=== PATIENT | female | born 1985 | race Caucasian/White ===

== ENCOUNTER 2021-01-26 23:49 | Emergency (ER) | payer OTHER ==
[2021-01-27 01:34] LABS: HEMOGLOBIN 13.5 gm/dl (12.3-15.3); RED BLOOD COUNT 4.99 M/UL (4.00-5.10); WHITE BLOOD COUNT 8.7 K/UL (4.5-11.0)
[2021-01-27 01:57] LABS: BUN/CREATININE RATIO 15 (0-10)
[2021-01-27] MEDS ORDERED: ZOFRAN4 MG PO (03:35)
[2021-01-28 08:14] LABS: HBSAG SCREEN Negative (Negative); HEP A AB, IGM Negative (Negative); HEP B CORE AB, IGM Negative (Negative); HEP C VIRUS AB 0.1 (0.0-0.9)
== END 2021-01-27 04:05 | disposition home or self-care (01) ==
LOC: ER1 23:49
PROVIDERS: Physician Assistant
DX: R55 Syncope and collapse (principal); R11.10 Vomiting, unspecified; Z20.822 Contact with and (suspected) exposure to COVID-19; I10 Essential (primary) hypertension; Z90.89 Acquired absence of other organs; Z88.0 Allergy status to penicillin
CPT/HCPCS: 70450; 71045; 80053; 80074; 81001; 82550; 82553; 83874; 84484; 84702; 85025; 93005; 96374; 99284; J2405; U0002